=== PATIENT | male | born 1955 | race Two or more races ===

== ENCOUNTER 2018-02-04 02:35 | Emergency (ER) | payer OTHER, BC ==
[~2018-02-04] VITALS: Ht 170.2 cm; Wt 75.7 kg
[2018-02-04] MEDS ORDERED: COZAAR100 MG (02:48)
[2018-02-04] MEDS ORDERED: METROPOLOL (02:49)
[2018-02-04] MEDS ORDERED: [UNRECOGNIZED DRUG - OTHER] (02:50)
[2018-02-04] MEDS ORDERED: VIBERZI75 MG (02:51)
[2018-02-04] MEDS ORDERED: CRESTOR20 MG (02:51)
[2018-02-04] MEDS ORDERED: NORVASC2.5 M1 (02:52)
== END 2018-02-04 10:18 | disposition home or self-care (01) ==
LOC: ER 02:35
DX: K57.30 Diverticulosis of large intestine without perforation or abscess without bleeding (principal); R10.32 Left lower quadrant pain